=== PATIENT | female | born 2000 | race African-American/Black ===

== ENCOUNTER 2022-08-02 16:52 | Outpatient (CLI) | payer OTHER ==
[2022-08-04 07:07] LABS: HBsAG SCREEN Negative (Negative); RPR Non Reactive (Non Reactive)
[2022-08-05 01:07] LABS: HIV SCREEN 4TH GENERATION Non Reactive (Non Reactive)
[2022-08-05 08:09] LABS: HCV AB Non Reactive (Non Reactive)
[2022-08-06 15:09] LABS: VARICELLA-ZOSTER AB IGM <0.91 index (0.00-0.90)
== END 2022-08-02 16:53 | disposition home or self-care (01) ==
LOC: LAB.N 16:52
PROVIDERS: ATTEND Nurse Practitioner Obstetrics & Gynecology
DX: Z36.89 Encounter for other specified antenatal screening (principal)
CPT/HCPCS: 36415; 85025; 86592; 86762; 86787; 86803; 86850; 86900; 86901; 87340; 87389

== ENCOUNTER 2022-09-18 10:59 | Outpatient (CLI) | payer OTHER ==
--- NOTE | 2022-09-18 15:36 | Ultrasound Report ---
PROCEDURE: OB Detailed Eval INDICATIONS: SUPERVISION OF OUTSIDE/PRIOR DATING DATA: Last menstrual period (LMP): 04/24/2022. LMP-based estimated date of delivery (SHARON): 01/29/2023. First dating scan (date and location): July 10, 2022 Estimated date of delivery (SHARON) from first dating scan: 02/02/2023. Please note reported prior imaging is not available for radiologist review. TECHNIQUE: Real-time scanning was performed of the fetus, with image documentation and biometric measurements. COMPARISON: Prior imaging referenced above is not available at this time for radiologist review. FINDINGS: General: A single living intrauterine gestation is present. Presentation: Variable Placenta: Placental position is fundal, without previa. Amniotic fluid index: 9.5 cm, within normal limits for gestational age. heart rate: 145 beats per minute. Maternal cervical canal: 5.3 cm long; normal length is 2.5 cm or more. biometrics: Biparietal diameter: 4.7 cm, 20 weeks and 1 day Head circumference: 17.2 cm, 19 weeks and 5 days Abdominal circumference: 14.9 cm, 20 weeks and 1 day Femur length: 3.4 cm, 20 weeks and 5 days Estimated gestational age from initial scan: 20 weeks and 3 days Composite gestational age from present scan: 20 weeks and 1 day Estimated weight and percentile: 347 g, 40th percentile Measurement variability in biometric dating: +/- 10 days from 12-20 weeks gestation, +/- 2 weeks from 20-30 weeks gestation, +/- 3 weeks at 30 weeks gestation or later. Anatomic survey: Neuro: Ventricles are normal at less than 10 mm. Cisterna magna is normal at 3-11 mm. Cerebellum is normal in size and morphology. Nuchal skin fold: Normal at less than 6 mm between 14 and 20 weeks gestational age. Face: Nose and lips. Profile view is not well seen. Spine: No evidence for spina bifida. Heart: LVOT and four-chamber views are within normal limits. RVOT is not well seen. Diaphragm: Diaphragm is intact. Stomach: Left-sided stomach is present. Kidneys: No hydronephrosis. Normal is less than 5 mm in 2nd trimester, less than 7 mm in 3rd trimester. Cord: 3 vessel cord has orthotopic insertion. Bladder: Normal in size. Extremities: All 4 extremities are visualized. IMPRESSION: Profile and RVOT views are not well seen. Recommend follow-up. Living intrauterine gestation 20 weeks and 3 days, at the 40th percentile by today's biometry. Reviewed by: Elder Morrison MD on 09/18/2022 3:35 PM PDT Approved by: Elder Morrison MD on 09/18/2022 3:35 PM PDT Station ID: [id number]
== END 2022-09-18 11:00 | disposition home or self-care (01) ==
LOC: DI 10:59
PROVIDERS: ATTEND Nurse Practitioner Obstetrics & Gynecology
DX: Z34.02 Encounter for supervision of normal first pregnancy, second trimester (principal); Z36.89 Encounter for other specified antenatal screening

== ENCOUNTER 2022-10-15 11:44 | Outpatient (CLI) | payer OTHER ==
--- NOTE | 2022-10-15 15:25 | Ultrasound Report ---
PROCEDURE: OB F/U or Repeat INDICATIONS: SUPERVISION OF NORMAL , FAS F/U OUTSIDE/PRIOR DATING DATA: Last menstrual period (LMP): 04/24/2022. LMP-based estimated date of delivery (SHARON): 01/29/2023. First dating scan (date and location): To 123. Estimated date of delivery (SHARON) from first dating scan: 02/02/2023. The below data below was generated using the ultrasound SHARON of 02/02/2023 TECHNIQUE: Real-time scanning was performed of the fetus, with image documentation and biometric measurements. COMPARISON: OB ultrasound 09/18/2022 FINDINGS: General: A single living intrauterine gestation is present. Presentation: Breech Placenta: Placental position is anterior, without previa. Amniotic fluid index: 10.6 cm, within normal limits for gestational age. heart rate: 148 beats per minute. Maternal cervical canal: 5.7 cm long; normal length is 2.5 cm or more. biometrics: Estimated gestational age from initial scan: 24 weeks 2 days Other: Right ventricular outflow track is within normal limits. IMPRESSION: Single live anterior with ultrasound gestational age of 24 weeks 2 days. Right ventricular outflow track is within normal limits. Reviewed by: Tonia Mcdonald MD on 10/15/2022 3:23 PM PDT Approved by: Tonia Mcdonald MD on 10/15/2022 3:23 PM PDT Station ID: [id number]
== END 2022-10-15 11:45 | disposition home or self-care (01) ==
LOC: DI 11:44
PROVIDERS: ATTEND Nurse Practitioner Obstetrics & Gynecology
DX: Z34.02 Encounter for supervision of normal first pregnancy, second trimester (principal); Z36.89 Encounter for other specified antenatal screening

== ENCOUNTER 2022-12-01 22:54 | Outpatient (CLI) | payer OTHER ==
[2022-12-01 23:26] VITALS: BP 120/76
--- NOTE | 2022-12-02 10:10 | PROVIDER PROGRESS NOTE ---
- HPI Chief Complaint: Decreased movement Current : Current EDU 01/29/23 Gestation 31 Weeks and 5 Days 1 Para 0 Vital Signs Temperature 37.2 C 12/01/22 23:01 Heart Rate 123 H 12/01/22 23:01 Respiratory Rate 24 12/01/22 23:01 Blood Pressure 120/76 12/01/22 23:01 Temperature 37.1 C 12/01/22 23:50 Heart Rate 118 H 12/01/22 23:50 Respiratory Rate 22 12/01/22 23:50 Blood Pressure 120/76 12/01/22 23:50 O2 Saturation If not protocol: Oxygen Flow, liters/minute - Procedures OB Procedure Performed: NST Diagnosis/Indication for NST: Decreased movement NST Procedure: NST Procedure Start Date 12/01/22 Start Time 23:07 Stop Time 23:35 Vibroacoustic Stimulation Used No Patient States Movement Yes - Plan Plan: Linnette [facility] her [facility] with c/o decreased movement. She states baby has seemed to be very slow with movement today and she drank cold water and ate a snack and for the past 2 hours has only been able to count 8 movements. She denies vaginal bleeding, leakage of fluid or contractions. NST reactive. FHR baseline 140s, moderate variability, + accels, no decels No contractions appreciated via tocometry Pt was able to appreciate 13 movements in the 20 minutes she has been here and she is feeling very reassured. Pt released home with precautions. FINAL DIAGONSIS: Decreased movement, third trimester
== END 2022-12-01 23:50 | disposition home or self-care (01) ==
LOC: WFO 22:54 → FBP 22:57 → WFO 23:50
PROVIDERS: ATTEND Nurse Practitioner Obstetrics & Gynecology
DX: O36.8130 Decreased fetal movements, third trimester, not applicable or unspecified (principal); Z3A.31 31 weeks gestation of pregnancy
CPT/HCPCS: 59025; 99214

== ENCOUNTER 2022-12-28 00:01 | Outpatient (CLI) | payer OTHER ==
[2022-12-28 00:31] VITALS: BP 116/67
--- NOTE | 2022-12-31 15:37 | PROVIDER PROGRESS NOTE ---
- HPI Chief Complaint: Decreased movement Current : Current EDU 01/29/23 Gestation 35 Weeks and 3 Days 1 Para 0 Vital Signs Temperature 97.8 C H 12/28/22 00:05 Heart Rate 106 H 12/28/22 00:05 Respiratory Rate 18 12/28/22 00:05 Blood Pressure 116/67 12/28/22 00:05 O2 Saturation 96 12/28/22 00:05 Temperature 97.6 C H 12/28/22 00:05 Heart Rate 106 H 12/28/22 00:05 Respiratory Rate 18 12/28/22 00:05 Blood Pressure 116/67 12/28/22 00:05 O2 Saturation 96 12/28/22 00:05 If not protocol: Oxygen Flow, liters/minute - Procedures OB Procedure Performed: NST Diagnosis/Indication for NST: Decreased movement NST Procedure: NST Procedure Start Date 12/28/22 Start Time 00:50 Stop Time 01:10 Vibroacoustic Stimulation Used No Patient States Movement No: decreased today since 0830 AM - Plan Plan: Linnette presents today with her with concerns for decreased movement. She reports drinking a lot of water this evening and laying down after dinner to count the movements. Over the past 3 hour she has counted 4-5 movements. She denies vaginal bleeding, leakage of fluid or contractions. She is supported by her today. NST reactive. FHR baseline 140s, moderate variability, + accels, no decels No contractions appreciated via tocometry Pt feels reassured and since presenting has felt >10 movements in the past 30 minutes. She was released home with precautions. She has emergency contact information. FINAL DIAGNOSIS: Decreased movement, third trimester
== END 2022-12-28 00:30 | disposition home or self-care (01) ==
LOC: WFO 00:01 → FBP 00:02 → WFO 00:30
PROVIDERS: ATTEND Nurse Practitioner Obstetrics & Gynecology
DX: O36.8130 Decreased fetal movements, third trimester, not applicable or unspecified (principal); Z3A.35 35 weeks gestation of pregnancy
CPT/HCPCS: 59025; 99213

== ENCOUNTER 2023-01-01 09:35 | Outpatient (CLI) | payer OTHER ==
[2023-01-01 09:53] LABS: BASOPHILS % (AUTO) 0.3 %; EOSINOPHILS # (AUTO) 0.1 10^3/uL (0.0-0.7); EOSINOPHILS % (AUTO) 1.7 %; HCT - HEMATOCRIT 33.4 % (37.0-47.0); LYMPHOCYTES # (AUTO) 1.7 10^3/uL (1.5-3.5); LYMPHOCYTES % (AUTO) 28.5 %; MEAN CORPUSCULAR HEMOGLOBIN 29.4 pg (27.0-31.0); MEAN CORPUSCULAR HGB CONC 32.9 g/dL (32.0-36.0); MEAN CORPUSCULAR VOLUME 89.3 fL (81.0-99.0); MEAN PLATELET VOLUME 12.7 fL (7.9-10.8); MONOCYTES # (AUTO) 0.5 10^3/uL (0.0-1.0); MONOCYTES % (AUTO) 7.6 %; NEUTROPHILS # (AUTO) 3.6 10^3/uL (1.5-6.6); NEUTROPHILS % (AUTO) 61.1 %; PLT - PLATELET COUNT 46 10^3/uL (130-450); RED BLOOD COUNT 3.74 10^6/uL (4.20-5.40); RED CELL DISTRIBUTION WIDTH 13.9 % (12.0-15.0); WHITE BLOOD COUNT 5.9 x10^3/uL (4.8-10.8)
[2023-01-01 10:07] LABS: CREATININE,URINE 38.6 mg/dL; PROTEIN/CREATININE RATIO,URINE 0.2 (<=0.2)
[2023-01-01 10:12] LABS: ALBUMIN 3.5 g/dL (3.2-5.5); ALBUMIN/GLOBULIN RATIO 1.3 (1.0-2.2); BILIRUBIN,TOTAL 0.2 mg/dL (0.2-1.0); CALCIUM 9.5 mg/dL (8.5-10.3); CREATININE 0.8 mg/dL (0.6-1.3); POTASSIUM 3.5 mmol/L (3.5-4.5); TOTAL PROTEIN 6.2 g/dL (6.4-8.9)
== END 2023-01-01 09:36 | disposition home or self-care (01) ==
LOC: LAB 09:35
PROVIDERS: ATTEND Nurse Practitioner Obstetrics & Gynecology
DX: R03.0 Elevated blood-pressure reading, without diagnosis of hypertension (principal)
CPT/HCPCS: 36415; 80053; 82570; 84156; 85025

== ENCOUNTER 2023-01-02 15:26 | Outpatient (CLI) | payer OTHER ==
[2023-01-02] MEDS ORDERED: MAGNESIUM SULFATE 4 GRAM 4 GM/50 ML BAG IV ONE (15:54)
[2023-01-02] MEDS ORDERED: LABETALOL 20 MG/4 ML SYRINGE IVP PRN ×3 (15:54)
[2023-01-02] MEDS ORDERED: hydrALAZINE INJ 20 MG/ML VIAL IVP PRN ×2 (15:54)
[2023-01-02] MEDS ORDERED: NIFEdipine 10 MG CAPSULE PO PRN (15:54)
[2023-01-02] MEDS ORDERED: MAGNESIUM SULFATE IN WATER 20 GM/500 ML IV.SOLN IV SCH (16:00)
--- NOTE | 2023-01-02 16:16 | HISTORY & PHYSICAL EXAMINATION ---
Admit History - : 1 Parity: 0 Care: positive: [facility] Risk/History: positive: induced HTN, Pre-eclampsia - Mother's Labs Mother's Blood Type: positive: O Mother's RH: positive: Positive Rubella Status: positive: Immune - Other Maternal History Other Maternal History: Patient is a at 36+1 weeks with care at [facility] in [place]. At her last appointment patient had multiple elevated blood pressures that were not in the severe range and was asymptomatic per the bindery chief. Pre-eclampsia labs were sent. Platelets were significant at 46,000. Patient was contacted to present to labor and delivery with diagnosis of pre-eclampsia with severe features. She denies headaches, changes in vision, RUQ pain. She has edema of upper and lower extremities. Patient has history of migraine headaches prior to . She was on a baby Aspirin during the . - HPI Diagnosis/Indication for NST: Pre- Hypertension - NST Procedure NST Procedure Start Time 00:50 Stop Time 01:10 Reactive NST Physical - Abdominal Exam Uterine Resting Tone: positive: Soft - Monitoring Strip Review: positive: Category I - Vaginal Exam Membranes: positive: Membranes intact (patient declined cervical exam Gen: NAD Pulm: CTA bilaterally Cardiac: RRR, Abdomen: gravid, non-tender, Ext: 2+ edema, Neuro: 1+DTRs, no clonus) Plan for Labor - Plan For Labor Plan for Labor: 1. Preeclampsia with severe features -Magnesium sulfate for seizure prophylaxis -labs pending -[facility] has accepted transfer.
[2023-01-02 16:27] LABS: ALBUMIN 3.8 g/dL (3.2-5.5); ALBUMIN/GLOBULIN RATIO 1.4 (1.0-2.2); BILIRUBIN,TOTAL 0.3 mg/dL (0.2-1.0); CALCIUM 9.7 mg/dL (8.5-10.3); CREATININE 0.9 mg/dL (0.6-1.3); POTASSIUM 3.3 mmol/L (3.5-4.5); TOTAL PROTEIN 6.6 g/dL (6.4-8.9)
[2023-01-02 16:30] LABS: BASOPHILS % (AUTO) 0.3 %; EOSINOPHILS # (AUTO) 0.1 10^3/uL (0.0-0.7); HCT - HEMATOCRIT 33.1 % (37.0-47.0); LYMPHOCYTES # (AUTO) 1.7 10^3/uL (1.5-3.5); LYMPHOCYTES % (AUTO) 22.4 %; MEAN CORPUSCULAR HEMOGLOBIN 29.4 pg (27.0-31.0); MEAN CORPUSCULAR HGB CONC 33.2 g/dL (32.0-36.0); MEAN CORPUSCULAR VOLUME 88.5 fL (81.0-99.0); MONOCYTES # (AUTO) 0.5 10^3/uL (0.0-1.0); MONOCYTES % (AUTO) 6.1 %; NEUTROPHILS # (AUTO) 5.4 10^3/uL (1.5-6.6); NEUTROPHILS % (AUTO) 69.6 %; RED BLOOD COUNT 3.74 10^6/uL (4.20-5.40); RED CELL DISTRIBUTION WIDTH 13.9 % (12.0-15.0); WHITE BLOOD COUNT 7.8 x10^3/uL (4.8-10.8)
[2023-01-02 16:54] LABS: PLATELET ESTIMATE, MANUAL NORMAL (130-450,000) (NORMAL); PLATELET MORPHOLOGY PLATELET CLUMPING (NORMAL); SLIDE REVIEW? Indicated
[2023-01-02] MEDS ORDERED: LACTATED RINGERS 1,000 ML IV SCH (17:00)
[2023-01-02 17:20] VITALS: BP 138/82
[2023-01-02 17:51] LABS: CREATININE,URINE 29.7 mg/dL; PROTEIN/CREATININE RATIO,URINE 0.2 (<=0.2)
== END 2023-01-02 16:58 | disposition short-term general hospital (02) ==
LOC: WFO 15:26 → FBP 15:28 → WFO 16:58
PROVIDERS: ATTEND Obstetrics & Gynecology Obstetrics
DX: O14.13 Severe pre-eclampsia, third trimester (principal); Z3A.36 36 weeks gestation of pregnancy; Z86.69 Personal history of other diseases of the nervous system and sense organs; Z79.82 Long term (current) use of aspirin
CPT/HCPCS: 36415; 59025; 80053; 82570; 84156; 85025; 86850; 86900; 86901; 96365; 96376; 99215; J3475

== ENCOUNTER 2023-01-24 16:16 | Outpatient (CLI) | payer OTHER | END 2023-01-24 16:17 | disposition home or self-care (01) | LOC: LAB.N 16:16 | PROVIDERS: ATTEND Nurse Practitioner Obstetrics & Gynecology | DX: R30.0 Dysuria (principal) | CPT/HCPCS: 87086; 87181 ==

== ENCOUNTER 2023-10-23 19:27 | Emergency (ER) | payer OTHER ==
[2023-10-23 19:53] VITALS: O2SAT 100
[2023-10-23 20:10] LABS: BASOPHILS # (AUTO) 0.1 10^3/uL (0.0-0.1); BASOPHILS % (AUTO) 0.7 %; EOSINOPHILS # (AUTO) 0.2 10^3/uL (0.0-0.7); EOSINOPHILS % (AUTO) 2.8 %; HCT - HEMATOCRIT 39.3 % (37.0-47.0); HGB - HEMOGLOBIN 13.1 g/dL (12.0-16.0); LYMPHOCYTES % (AUTO) 35.5 %; MEAN CORPUSCULAR HEMOGLOBIN 29.7 pg (27.0-31.0); MEAN CORPUSCULAR HGB CONC 33.3 g/dL (32.0-36.0); MEAN CORPUSCULAR VOLUME 89.1 fL (81.0-99.0); MEAN PLATELET VOLUME 12.3 fL (7.9-10.8); MONOCYTES # (AUTO) 0.6 10^3/uL (0.0-1.0); MONOCYTES % (AUTO) 6.7 %; NEUTROPHILS # (AUTO) 4.6 10^3/uL (1.5-6.6); NEUTROPHILS % (AUTO) 54.2 %; PLT - PLATELET COUNT 156 10^3/uL (130-450); RED BLOOD COUNT 4.41 10^6/uL (4.20-5.40); RED CELL DISTRIBUTION WIDTH 12.5 % (12.0-15.0); WHITE BLOOD COUNT 8.5 x10^3/uL (4.8-10.8)
[2023-10-23 20:21] LABS: ALBUMIN 4.2 g/dL (3.2-5.5); ALBUMIN/GLOBULIN RATIO 1.7 (1.0-2.2); BILIRUBIN,TOTAL 0.3 mg/dL (0.2-1.0); POTASSIUM 3.9 mmol/L (3.5-4.5); TOTAL PROTEIN 6.7 g/dL (6.4-8.9)
--- NOTE | 2023-10-23 20:34 | ED Physician Documentation ---
PD HPI ABD PAIN - Stated complaint Stated Complaint: PREG/ABD PX - Chief complaint Chief Complaint: Abd Pain - Additional information Additional information: 19-year-old female 5 weeks presents emergency department for left upper quadrant pain and suprapubic tenderness. Patient said that she has had sharp jolts of pain 6-7 times since yesterday. She said mild nausea no emesis no fevers or chills no vaginal bleeding no trauma. Last menstrual cycle was beginning of September. She does report that this morning she had some thick vaginal white discharge not malodorous PD PAST MEDICAL HISTORY - Past Medical History Past Medical History: No Cardiovascular: None Respiratory: None Neuro: None Endocrine/Autoimmune: None GI: None CAGE OPERATOR: None : None HEENT: None Psych: None Musculoskeletal: None Derm: None - Present Medications Home Medications: Ambulatory Orders Medication Instructions Recorded Confirmed No Known Home Medications 10/23/23 10/23/23 - Allergies Allergies/Adverse Reactions: Allergies Allergy/AdvReac Type Severity Reaction Status Date / Time No Known Drug Allergies Allergy Verified 10/23/23 20:56 - Social History Does the pt smoke?: No Smoking Status: Never smoker Does the pt drink ETOH?: No Does the pt have substance abuse?: No - Immunizations Immunizations are current?: Yes - POLST Patient has POLST: No PD ED PE NORMAL - Vitals Vital signs reviewed: Yes - General General: Alert and oriented X 3, No acute distress, Well developed/nourished - Cardiac Cardiac: RRR - Respiratory Respiratory: No respiratory distress, Clear bilaterally - Abdomen Abdomen: Normal bowel sounds, Soft, Other (Left upper quadrant tenderness on palpation) - Rectal Rectal: Deferred - Back Back: No CVA TTP - Derm Derm: Normal color, Warm and dry, No rash - Extremities Extremities: No deformity - Psych Psych: Normal mood Results - Vitals Vitals: Vital Signs - 24 hr 10/23/23 10/23/23 19:47 22:05 Temperature 36.2 C L 36.9 C Heart Rate 101 H 87 Respiratory 17 16 Rate Blood Pressure 139/73 H 142/80 H O2 Saturation 100 100 Oxygen O2 Source Room air - Labs Labs: Laboratory Tests 10/23/23 10/23/23 10/23/23 19:58 19:58 19:58 WBC 8.5 RBC 4.41 Hgb 13.1 Hct 39.3 MCV 89.1 MCH 29.7 MCHC 33.3 RDW 12.5 Plt Count 156 MPV 12.3 H Neut # (Auto) 4.6 Lymph # (Auto) 3.0 Hemphill # (Auto) 0.6 Eos # (Auto) 0.2 Baso # (Auto) 0.1 Absolute Nucleated RBC 0.00 Nucleated RBC % 0.0 Sodium 135 Potassium 3.9 Chloride 104 Carbon Dioxide 25 Anion Gap 6.0 BUN 19 Creatinine 1.0 Estimated GFR (MDRD) 83 L Glucose 91 Calcium 10.0 Total Bilirubin 0.3 AST 11 ALT 9 L Alkaline Phosphatase 68 Total Protein 6.7 Albumin 4.2 Globulin 2.5 Albumin/Globulin Ratio 1.7 Lipase 82 Beta HCG, Quant 34101.5 Urine Color Urine Clarity Urine pH Ur Specific [place] Urine Protein Urine Glucose (UA) Urine Ketones Urine Occult Blood Urine Nitrite Urine Bilirubin Urine Urobilinogen Ur Leukocyte Esterase Ur Microscopic Review Urine Culture Comments C. glabrata (PCR) C. krusei (PCR) Sharon species DNA T. vaginalis (PCR) Bact Vaginosis (PCR) 10/23/23 10/23/23 21:26 21:36 WBC RBC Hgb Hct MCV MCH MCHC RDW Plt Count MPV Neut # (Auto) Lymph # (Auto) [place] # (Auto) Eos # (Auto) Baso # (Auto) Absolute Nucleated RBC Nucleated RBC % Sodium Potassium Chloride Carbon Dioxide Anion Gap BUN Creatinine Estimated GFR (MDRD) Glucose Calcium Total Bilirubin AST ALT Alkaline Phosphatase Total Protein Albumin Globulin Albumin/Globulin Ratio Lipase Beta HCG, Quant Urine Color YELLOW Urine Clarity CLEAR Urine pH 6.0 Ur Specific [place] 1.015 Urine Protein NEGATIVE Urine Glucose (UA) NEGATIVE Urine Ketones NEGATIVE Urine Occult Blood NEGATIVE Urine Nitrite NEGATIVE Urine Bilirubin NEGATIVE Urine Urobilinogen 0.2 (NORMAL) Ur Leukocyte Esterase NEGATIVE Ur Microscopic Review NOT INDICATED Urine Culture Comments NOT INDICATED C. glabrata (PCR) NEGATIVE C. krusei (PCR) NEGATIVE Sharon species DNA NEGATIVE T. vaginalis (PCR) NEGATIVE Bact Vaginosis (PCR) NEGATIVE - Rads (name of study) OB first trimester ultrasound Relevant Findings:: Final report received, EMP independent interpretation of test, Other (Intrauterine gestational sac estimated gestational age 5 weeks 5 days your) PD Medical Decision Making - ED course ED course: 23-year-old 5-week female presents emergency department for left upper quadrant pain and episode of white vaginal discharge that occurred this morning. Patient says that she returned to her edge polisher and they told her to come into the emergency department for further evaluation. Labs are complete no leukocytosis no anemia no electrolyte abnormalities. Urinalysis is not indicative of any urinary tract infection and vaginal swab is negative for any STIs or bacterial vaginosis. Ultrasound was complete for further evaluation and as well as to rule out any possibility of this being related to an ectopic and it was found that she had an intrauterine gestational sac measuring 5 weeks and 5 days. She does not have an ectopic . At this point in time I am not entirely sure what is causing this patient's left upper quadrant pain but given that she is and her left upper quadrant pain is pretty minimal I do not believe any further imaging is warranted at this point in time. Patient is told to follow- up with her primary care provider and [facility] outpatient for further evaluation return precautions given safer discharge. Departure - Departure Disposition: 01 Home, Self Care Clinical Impression: Abdominal pain affecting Instructions: ED Abdominal Pain Rule Out Ectopic Comments: We have completed some basic labs in the emergency department I am not seeing any acute abnormalities or findings at this point in time. Your hCG is over 11,000 which is appropriate for how many weeks you are and we have completed an ultrasound which shows that it is not an ectopic . At this point in time I am unsure what is causing your left upper quadrant pain but I do not believe that any further emergent workup is indicated at this time. I would keep a diary of when this is happening and try to keep and notice any trends as to what is causing the pain or what alleviates the pain. Please follow-up with your primary care provider and your scheduled [facility] appointment and come back into the emergency department if it is getting significantly worse, nausea vomiting, fevers chills or any other concerning symptoms. Forms: PCP List Discharge Date/Time: 10/23/23 22:10
[2023-10-23 21:32] LABS: BILIRUBIN,URINE NEGATIVE (NEGATIVE); GLUCOSE, URINE (UA) NEGATIVE (NEGATIVE); KETONES,URINE (UA) NEGATIVE (NEGATIVE); LEUKOCYTE ESTERASE, URINE NEGATIVE (NEGATIVE); NITRITE,URINE NEGATIVE (NEGATIVE); OCCULT BLOOD,URINE NEGATIVE (NEGATIVE); PROTEIN,URINE NEGATIVE (NEGATIVE); UROBILINOGEN,URINE 0.2 (NORMAL) E.U./dL (NORMAL)
[2023-10-23 21:38] LABS: CLARITY,URINE CLEAR (CLEAR)
[2023-10-23 22:10] VITALS: BP 142/80
--- NOTE | 2023-10-23 23:34 | Ultrasound Report ---
PROCEDURE: OB 1st Trimester w/TV INDICATIONS: pelvic pain, 6 weeks preg OUTSIDE/PRIOR DATING DATA: Last menstrual period (LMP): 09/15/2023. LMP-based estimated date of delivery (SHARON): 06/21/2024. First dating scan (date and location): 10/23/2023. TECHNIQUE: Real-time scanning was performed of the fetus and maternal pelvic organs, with image documentation. Endovaginal scanning was also performed to better visualize the fetus and maternal ovaries. COMPARISON: None. FINDINGS: Intrauterine gestational sac present. Embryo: Intrauterine gestational sac. Mean gestational sac diameter 0.85 cm. Estimated gestational a ge 5 weeks 5 days. No pole is seen at this time. No yolk sac. Heart rate: Not detected at this time. Other: No perigestational fluid collection. Measurement variability in dating: +/- 4 weeks by LMP, +/- 7 days by mean sac diameter (use before 6 weeks gestation if crown-rump length not able to be measured), +/- 5 days by crown-rump length (6-12 weeks gestation). Maternal organs: Ovaries appear within normal limits. Simple appearing left ovarian cyst measuring 4 .6 cm. No ectopic is seen. Trace free fluid in the pelvic cul-de-sac. IMPRESSION: 1. Intrauterine gestational sac . Estimated gestational age 5 weeks 5 days. No pole at this lisa e. 2. No perigestational hemorrhage. Recommend short-term follow-up OB ultrasound to document the crown-rump length. Reviewed by: Timothy Corey MD on 10/23/2023 11:33 PM PDT Approved by: Timothy Corey MD on 10/23/2023 11:33 PM PDT Station ID: [id number]
[2023-10-23 23:35] LABS: BACTERIAL VAGINOSIS DNA NEGATIVE (NEGATIVE); CANDIDA GLABRATA DNA NEGATIVE (NEGATIVE); CANDIDA GROUP DNA NEGATIVE (NEGATIVE); CANDIDA KRUSEI DNA NEGATIVE (NEGATIVE); TRICHOMONAS VAGINALIS DNA NEGATIVE (NEGATIVE)
== END 2023-10-23 22:10 | disposition home or self-care (01) ==
LOC: ED 19:27
DX: O26.891 Other specified pregnancy related conditions, first trimester (principal); Z3A.01 Less than 8 weeks gestation of pregnancy; R10.12 Left upper quadrant pain; N89.8 Other specified noninflammatory disorders of vagina
CPT/HCPCS: 36415; 80053; 81001; 81003; 81514; 83690; 84702; 85025; 87086; 99284

== ENCOUNTER 2023-11-18 15:10 | Outpatient (CLI) | payer OTHER ==
[2023-11-18 15:30] LABS: BASOPHILS % (AUTO) 0.4 %; EOSINOPHILS # (AUTO) 0.2 10^3/uL (0.0-0.7); EOSINOPHILS % (AUTO) 2.6 %; HCT - HEMATOCRIT 36.8 % (37.0-47.0); HGB - HEMOGLOBIN 12.7 g/dL (12.0-16.0); LYMPHOCYTES # (AUTO) 1.9 10^3/uL (1.5-3.5); LYMPHOCYTES % (AUTO) 28.5 %; MEAN CORPUSCULAR HEMOGLOBIN 30.6 pg (27.0-31.0); MEAN CORPUSCULAR HGB CONC 34.5 g/dL (32.0-36.0); MEAN CORPUSCULAR VOLUME 88.7 fL (81.0-99.0); MEAN PLATELET VOLUME 11.8 fL (7.9-10.8); MONOCYTES # (AUTO) 0.3 10^3/uL (0.0-1.0); MONOCYTES % (AUTO) 4.7 %; NEUTROPHILS # (AUTO) 4.3 10^3/uL (1.5-6.6); NEUTROPHILS % (AUTO) 63.4 %; PLT - PLATELET COUNT 168 10^3/uL (130-450); RED BLOOD COUNT 4.15 10^6/uL (4.20-5.40); RED CELL DISTRIBUTION WIDTH 12.5 % (12.0-15.0); WHITE BLOOD COUNT 6.8 x10^3/uL (4.8-10.8)
[2023-11-18 15:48] LABS: ALBUMIN 3.9 g/dL (3.2-5.5); ALBUMIN/GLOBULIN RATIO 2.3 (1.0-2.2); BILIRUBIN,TOTAL 0.2 mg/dL (0.2-1.0); CALCIUM 9.3 mg/dL (8.5-10.3); CREATININE 0.8 mg/dL (0.6-1.3); POTASSIUM 3.5 mmol/L (3.5-4.5); TOTAL PROTEIN 5.6 g/dL (6.4-8.9)
[2023-11-19 02:12] LABS: HBsAG SCREEN Negative (Negative)
[2023-11-19 03:14] LABS: HIV SCREEN 4TH GENERATION Non Reactive (Non Reactive)
[2023-11-19 04:10] LABS: RPR Non Reactive (Non Reactive)
[2023-11-19 09:10] LABS: VARICELLA-ZOSTER AB IGG <135 index (Immune >165)
[2023-11-20 01:08] LABS: HCV AB Non Reactive (Non Reactive)
== END 2023-11-18 15:11 | disposition home or self-care (01) ==
LOC: LAB 15:10
PROVIDERS: ATTEND Nurse Practitioner Obstetrics & Gynecology
DX: Z36.89 Encounter for other specified antenatal screening (principal); Z87.59 Personal history of other complications of pregnancy, childbirth and the puerperium
CPT/HCPCS: 36415; 80053; 85025; 86592; 86762; 86787; 86803; 86850; 86900; 86901; 87340; 87389

== ENCOUNTER 2024-02-17 15:59 | Outpatient (CLI) | payer OTHER ==
--- NOTE | 2024-02-18 16:30 | Ultrasound Report ---
PROCEDURE: OB Anatomy Scan INDICATIONS: SUPERVISION OF NORMAL OUTSIDE/PRIOR DATING DATA: Last menstrual period (LMP): 09/15/2023. LMP-based estimated date of delivery (SHARON): 06/21/2024. First dating scan (date and location): 11/07/2023. Estimated date of delivery (SHARON) from first dating scan: 06/21/2024. The below data below was generated using the clinical/ultrasound SHARON of 06/21/2024 TECHNIQUE: Real-time scanning was performed of the fetus, with image documentation and biometric measurements. COMPARISON: OB ultrasound 10/23/2023 FINDINGS: General: A single living intrauterine gestation is present. Presentation: Variable Placenta: Placental position is posterior, without previa. Amniotic fluid index: 11.9 cm, within normal limits for gestational age. heart rate: 150 beats per minute. Maternal cervical canal: 5.4 cm long; normal length is 2.5 cm or more. biometrics: Biparietal diameter: 5.2 cm 21 weeks 5 days 32nd percentile Head circumference: 20.0 cm 20 weeks 1 day 39th percentile Abdominal circumference: 17.6 cm 22 weeks 3 days 53rd percentile Femur length: 3.9 cm 22 weeks 3 days 50% Estimated gestational age from initial scan: 22 weeks 1 day Composite gestational age from present scan: 20 weeks 0 days Estimated weight and percentile: 501 g 57th percentile Measurement variability in biometric dating: +/- 10 days from 12-20 weeks gestation, +/- 2 weeks from 20-30 weeks gestation, +/- 3 weeks at 30 weeks gestation or later. Anatomic survey: Neuro: Ventricles are normal at less than 10 mm. Cisterna magna is normal at 3-11 mm. Cerebellum i s normal in size and morphology. Nuchal skin fold: Normal at less than 6 mm between 14 and 20 weeks gestational age. Face: Nose and lips, facial profile are not well seen. Spine: Not well seen. Heart: 4-chambered heart is present, with normal ventricular outflow tracts. Diaphragm: Diaphragm is intact. Stomach: Left-sided stomach is present. Kidneys: No hydronephrosis. Normal is less than 5 mm in 2nd trimester, less than 7 mm in 3rd trimester. Cord: 3 vessel cord has orthotopic insertion. Bladder: Normal in size. Extremities: Not well seen. IMPRESSION: Single live intrauterine with gestational age today of 22 weeks 0 days. Face/lips/facial profile is not well seen. No additional, spine and both upper and lower extremities are not well visualized. Recommend interval follow-up. Reviewed by: Tonia Mcdonald MD on 02/18/2024 4:29 PM PDT Approved by: Tonia Mcdonald MD on 02/18/2024 4:29 PM PDT Station ID: [id number]
== END 2024-02-17 16:00 | disposition home or self-care (01) ==
LOC: DI 15:59
PROVIDERS: ATTEND Nurse Practitioner Obstetrics & Gynecology
DX: Z34.02 Encounter for supervision of normal first pregnancy, second trimester (principal); Z36.89 Encounter for other specified antenatal screening